=== PATIENT | male | born 1985 | race Caucasian/White ===

== ENCOUNTER 2017-02-03 15:00 | Emergency (ER) | payer BC ==
[~2017-02-03] VITALS: Ht 177.8 cm; Wt 75.8 kg
[~2017-02-03 15:00] MED LIST: LEVAQUIN500 MG PO
[2017-02-03] MEDS ORDERED: NARCAN4 MG NS (15:48)
[2017-02-03 16:33] VITALS: BP 146/88
== END 2017-02-03 16:34 | disposition home or self-care (01) ==
LOC: EME 15:00
DX: T40.1X1A Poisoning by heroin, accidental (unintentional), initial encounter (principal); F17.200 Nicotine dependence, unspecified, uncomplicated
CPT/HCPCS: 99281; 99283

== ENCOUNTER 2017-11-06 20:50 | Emergency (ER) | payer BC ==
[~2017-11-06] VITALS: Ht 180.3 cm; Wt 71.8 kg
[~2017-11-06 20:50] MED LIST changes: +NARCAN4 MG NS
[2017-11-06 21:34] LABS: HEMATOCRIT 39.4 % (38.0-50.0); HEMOGLOBIN 13.5 G/DL (12.5-16.6); MCH 28.3 PG (29.0-34.0); MCHC 34.3 G/DL (30.0-36.0); MCV 82.6 FL (86-99); PLATELET COUNT 155 K/uL (156-360); RBC DIS.WIDTH-SD 39.2 % (39-53); RED BLOOD COUNT 4.77 M/uL (4.00-5.50); WHITE BLOOD COUNT 9.5 K/uL (4.1-10.2)
[2017-11-06 21:40] LABS: CHLORIDE 108 mEq/L (99-109); POTASSIUM 3.8 mEq/L (3.7-5.4); SODIUM 140 mEq/L (136-147)
[2017-11-06 21:42] LABS: GLUCOSE 127 mg/dL (70-99)
[2017-11-06 21:46] LABS: GFR ESTIMATE (CALCULATED) > 59 mL/min/ (58.99-99999)
[2017-11-06 21:47] LABS: UREA NITROGEN (BUN) 14 mg/dL (9-23)
[2017-11-06 22:57] LABS: APPEARANCE CLEAR ((CLEAR)); BILIRUBIN NEGATIVE; BLOOD MODERATE; COLOR YELLOW ((YELLOW)); GLUCOSE (STRIP) NEGATIVE; KETONES NEGATIVE; LEUKOCYTES MODERATE; NITRITE NEGATIVE; PROTEIN (STRIP) NEGATIVE; UROBILINOGEN 0.2 MG/DL (0.2-1.0)
[2017-11-06 22:59] LABS: BACTERIA NONE SEEN /HPF; EPITHELIAL CELLS NONE SEEN /HPF; MUCUS NONE SEEN /LPF; RED BLOOD CELLS 0-5 /HPF (0-5); UCUL ADDED? YES; WHITE BLOOD CELLS TNTC /HPF (0-5)
[2017-11-07] MEDS ORDERED: KEFLEX500 MG PO (00:12)
[2017-11-07] MEDS ORDERED: TYLENOL REGULA325 MG PO (00:12)
[2017-11-07 00:35] VITALS: BP 111/55
== END 2017-11-07 00:37 | disposition home or self-care (01) ==
LOC: EME 20:50
DX: N39.0 Urinary tract infection, site not specified (principal); B95.61 Methicillin susceptible Staphylococcus aureus infection as the cause of diseases classified elsewhere; F17.200 Nicotine dependence, unspecified, uncomplicated; Z98.2 Presence of cerebrospinal fluid drainage device
CPT/HCPCS: 80048; 81003; 83605; 85027; 87040; 87077; 87086; 87147; 87186; 87801; 99281; 99284; J0696

== ENCOUNTER 2017-11-12 16:54 | Emergency (ER) | payer BC ==
[~2017-11-12] VITALS: Ht 180.3 cm; Wt 71.4 kg
[~2017-11-12 16:54] MED LIST changes: +KEFLEX500 MG PO; +TYLENOL REGULA325 MG PO
[2017-11-12 18:21] LABS: HEMATOCRIT 34.5 % (38.0-50.0); HEMOGLOBIN 11.8 G/DL (12.5-16.6); MCH 28.4 PG (29.0-34.0); MCHC 34.2 G/DL (30.0-36.0); MCV 83.1 FL (86-99); PLATELET COUNT 146 K/uL (156-360); RBC DIS.WIDTH-CV 13.9 % (11.8-14.6); RBC DIS.WIDTH-SD 41.7 % (39-53); RED BLOOD COUNT 4.15 M/uL (4.00-5.50)
[2017-11-12 18:29] LABS: CHLORIDE 105 mEq/L (99-109); POTASSIUM 3.6 mEq/L (3.7-5.4); SODIUM 141 mEq/L (136-147)
[2017-11-12 18:31] LABS: GLUCOSE 82 mg/dL (70-99)
[2017-11-12 18:35] LABS: CREATININE 0.8 mg/dL (0.6-1.3); GFR ESTIMATE (CALCULATED) > 59 mL/min/ (58.99-99999)
[2017-11-12 18:35] LABS: APPEARANCE CLEAR ((CLEAR)); BILIRUBIN NEGATIVE; BLOOD NEGATIVE; COLOR YELLOW ((YELLOW)); GLUCOSE (STRIP) NEGATIVE; KETONES NEGATIVE; LEUKOCYTES NEGATIVE; NITRITE NEGATIVE; PROTEIN (STRIP) NEGATIVE; UROBILINOGEN 0.2 MG/DL (0.2-1.0)
[2017-11-12 18:36] LABS: UREA NITROGEN (BUN) 10 mg/dL (9-23)
[2017-11-12] MEDS ORDERED: BACTRIM,SEPT1 TABLET PO (18:55)
[2017-11-12 19:09] VITALS: BP 134/78
== END 2017-11-12 19:10 | disposition home or self-care (01) ==
LOC: EXP 16:54 → EME 16:54 → EXP 19:10
PROVIDERS: Nurse Practitioner Family
DX: R78.81 Bacteremia (principal); Z87.440 Personal history of urinary (tract) infections; Z98.2 Presence of cerebrospinal fluid drainage device; F17.200 Nicotine dependence, unspecified, uncomplicated
CPT/HCPCS: 80048; 81003; 83605; 85027; 87040; 87086; 99281; 99284